=== PATIENT | female | born 1955 | race Caucasian/White ===

== ENCOUNTER 2020-01-26 11:36 | Outpatient (REF) | payer OTHER, SELFPAY ==
[2020-01-26 12:19] LABS: MANUAL DIFF FLAG NO
[2020-01-26 12:23] LABS: Basophils Absolute Auto 0.1 X10*3/uL (0.0-0.2); Eosinophils Absolute Auto 0.1 X10*3/uL (0.0-0.4); Hematocrit 38.3 % (37-47); Hemoglobin 12.4 g/dl (12.0-16.0); Imm Gran Abs Auto 0.02 X10*3/uL (0.00-0.03); Imm Gran Pct Auto 0.3 % (0.0-0.4); Lymphocytes Absolute Auto 1.3 X10*3/uL (1.2-4.9); Lymphocytes Percent Auto 21.6 % (20-40); Mean Corpuscular HGB Conc 32.4 g/dl (31.0-35.0); Mean Corpuscular Hemoglobin 30.3 pg (27.0-33.0); Mean Corpuscular Volume 93.6 fL (80-98); Mean Platelet Volume 11.5 fL (9.4-12.3); Monocytes Absolute Auto 0.6 X10*3/uL (0.1-1.2); Monocytes Percent Auto 9.8 % (2-11); Neutrophils Absolute Auto 3.8 X10*3/uL (2.0-8.3); Neutrophils Percent Auto 65.3 % (45-73); Platelet Count 192 X10*3/uL (160-400); Red Blood Count 4.09 X10*6/uL (4.20-5.50); Red Cell Distribution Width 12.7 % (11.0-16.0); White Blood Count 5.9 X10*3/uL (4.8-10.8)
[2020-01-26 12:42] LABS: Alanine Aminotransferase 20 U/L (0-31); Albumin Level 4.4 g/dL (3.5-5.0); Alkaline Phosphatase 67 U/L (39-117); Anion Gap 10 (12-20); Aspartate Amino Transferase 17 U/L (5-31); Bilirubin Total 0.5 mg/dL (0.0-1.0); Blood Urea Nitrogen 14 mg/dL (9-16); C Reactive Protein 1.03 mg/dL (< or = 0.50); Calcium 10.1 mg/dL (8.4-10.2); Carbon Dioxide 31 mmol/L (22-29); Chloride 104 mmol/L (96-108); Estimated Glomerular Filt Rate > 60; Glucose Random 93 mg/dL (60-115); Potassium 4.7 mmol/l (3.3-5.1); Sodium 140 mmol/L (135-145); Total Protein 7.4 g/dL (6.5-8.0)
== END 2020-01-26 11:37 | disposition home or self-care (01) ==
LOC: HO.10HDL 11:36
PROVIDERS: Visit Provider Internal Medicine
DX: M54.9 Dorsalgia, unspecified (principal); K57.90 Diverticulosis of intestine, part unspecified, without perforation or abscess without bleeding
CPT/HCPCS: 36415; 80053; 85025; 86140

== ENCOUNTER 2020-04-10 10:35 | Emergency (ER) | payer OTHER, SELFPAY ==
[2020-04-10 10:37] VITALS: BP 175/87; PULSE 83; RESP 16; TEMP 36.2; O2SAT 100; BMI 24.0
--- NOTE | 2020-04-10 11:15 | ED.NAVMDI ---
HPI - Nausea/Vomiting/Diarrhea General Chief complaint: Nausea/Vomiting/Diarrhea Stated complaint: vomiting Time Seen by Provider: 04/10/20 11:15 Source: patient Mode of arrival: ambulatory Limitations: no limitations Related Data Allergies Allergy/AdvReac Type Severity Reaction Status Date / Time Penicillins [PENICILLINS] Allergy Severe FACIAL Verified 04/10/20 10:41 SWELLING tetracycline [TETRACYCLINE] Allergy Mild GENERAL Verified 04/10/20 10:41 RASH erythromycin base AdvReac Intermediate GI UP SET Verified 04/10/20 10:41 [ERYTHROMYCIN BASE] PMFSH Past Medical History Medical History (Updated 04/10/20 @ 10:39 by Verona Virk) Back pain Migraines Shingles Social History Social History Advance Directives: Yes Advance Directives on File: Yes Advance Directives Date on File: 01/26/20 Physical Exam Vital Signs: Vital Signs: Last Vital Signs Temp 97.2 F 04/10/20 10:37 Pulse 83 04/10/20 10:37 Resp 16 04/10/20 10:37 BP 175/87 H 04/10/20 10:37 Pulse Ox 100 04/10/20 10:37 Body Mass Index 24.0
[2020-04-10 11:16] VITALS: BP 171/77; PULSE 100; RESP 16; O2SAT 100
--- NOTE | 2020-04-10 11:21 | ED.HA ---
HPI - Headache General Chief Complaint: Nausea/Vomiting/Diarrhea Stated Complaint: vomiting Time Seen by Provider: 04/10/20 11:15 Source: patient Mode of arrival: ambulatory Limitations: no limitations History of Present Illness MD elicited complaint: migraine Pertinent past history: migraines Onset (ago): day(s) (last night) Onset description: gradually Location: right and temporal Severity: similar to previous episodes Quality & Timing: throbbing Exacerbating factors: none Relieving factors: nothing Context: occurred at rest Associated symptoms: nausea and vomiting Treatments prior to arrival: other (excedrin) Related Data Previous Rx's Medication Instructions Recorded ltnokipraw-sbzftlrkehpcq-rovc 1 tab PO Q6H PRN #20 tab 04/10/20 cyclobenzaprine 10 mg PO TID PRN #14 tab 04/10/20 ondansetron 4 mg PO Q8H PRN #20 tab 04/10/20 Allergies Allergy/AdvReac Type Severity Reaction Status Date / Time Penicillins [PENICILLINS] Allergy Severe FACIAL Verified 04/10/20 10:41 SWELLING tetracycline [TETRACYCLINE] Allergy Mild GENERAL Verified 04/10/20 10:41 RASH erythromycin base AdvReac Intermediate GI UP SET Verified 04/10/20 10:41 [ERYTHROMYCIN BASE] Review of Systems Review of Systems: Constitutional : No Fever, No Chills, No Fatigue ENT/Mouth : No sore throat, No Rhinorrhea Eyes: No Eye Pain, No Swelling, No Redness Cardiovascular : No Chest Pain, No SOB, No Dyspnea on Exertion Respiratory : No Cough, No Sputum Gastrointestinal : pos Nausea, pos Vomiting, No Diarrhea, No abdominal Pain Genitourinary : No Dysuria, No Urinary Frequency, No Hematuria, Musculoskeletal : No joint pain, No Myalgias, No Joint Swelling Skin : No Skin Lesions, No rash Neuro : No Weakness, No Numbness, No Dizziness, positive Headache Psych : No Anxiety/Panic, No Depression Heme/Lymph: No Bruising, No Bleeding,No Lymphadenopathy Endocrine : No Polyuria, No Polydipsia All other systems reviewed and are negative [facility] Past Medical History Attestation statement: The following information was validated with the patient. Medical History Back pain Migraines Shingles Social History Social History Alcohol intake: current Alcohol intake frequency: holidays/special occasions only Alcohol type: wine Smoking Status: Never smoker Smoked in Last 30 Days: No Use of substances other than those prescribed or required for medical reasons: No Advance Directives: Yes Advance Directives on File: Yes Advance Directives Date on File: 01/26/20 Physical Exam Vital Signs: Vital Signs: Last Vital Signs Temp 97.2 F 04/10/20 10:37 Pulse 98 04/10/20 13:13 Resp 15 04/10/20 13:13 BP 147/50 H 04/10/20 13:13 Pulse Ox 100 04/10/20 13:13 Body Mass Index 24.0 Appearance: Alert. Oriented X3. No acute distress. Eyes: Pupils equal, round and reactive to light. ENT: Pharynx normal. Neck: Normal inspection. Neck supple. no meningeal signs CVS: Normal heart rate and rhythm. Pulses normal. Respiratory: No respiratory distress. Breath sounds normal. Abdomen: Soft and nontender. Skin: Skin warm and dry. Normal skin color. Normal skin turgor. Extremities: No lower extremity edema. No calf ttp Neuro: Oriented X 3. No motor deficit. No sensory deficit. Course Course Course Narrative: feels better stable for DC MDM - Headache MDM Narrative Medical decision making narrative: 65 yo female no AC therapy gradual onset R sided headache with photophobia and n/v chronic migraines since age 21 at this time will need IV reglan/toradol/magnesium gradual onset, normal neuro exam, afebrile doubt SAH or [employer] infection Discharge Plan Discharge Clinical Impression: Migraine Qualifiers: Migraine type: unspecified Status migrainosus presence: without status migrainosus Intractability: not intractable Qualified Code(s): G43.909 - Migraine, unspecified, not intractable, without status migrainosus Patient Disposition: Home, Self-Care Instructions: Migraine Headache (ED) Additional Instructions: return to ED for any worsening symptoms or concerns Prescriptions: New cyclobenzaprine 10 mg tablet 10 mg PO TID PRN (Reason: muscle spasm) Qty: 14 RF: 0 dvrowirtar-mhcrwieuspyml-dtnh 50-325-40 mg tablet 1 tab PO Q6H PRN (Reason: pain) Qty: 20 RF: 0 ondansetron 4 mg tablet,disintegrating 4 mg PO Q8H PRN (Reason: nausea and vomiting) Qty: 20 RF: 0 Referrals: Jesús Morrissey MD [Primary Care Provider] - 3 days (if not better) Stand Alone Forms: Work/School Release
[2020-04-10] MEDS: 0.9 % Sodium Chloride 1,000 ML 999 ML IVCONT (12:01)
[2020-04-10] MEDS: Ketorolac Tromethamine 30 MG/ML VIAL IVPUSH (12:02)
[2020-04-10] MEDS: Metoclopramide HCl 10 MG/2 ML VIAL IVPUSH (12:02)
[2020-04-10] MEDS: diphenhydrAMINE HCL 50 MG/ML VIAL 25 MG IVPUSH (12:02)
[2020-04-10] MEDS: Magnesium Sulfate/H2O 2 GM/50 ML PIGGYBACK IV (12:03)
[2020-04-10 13:13] VITALS: BP 147/50; PULSE 98; RESP 15; O2SAT 100
== END 2020-04-10 14:46 | disposition home or self-care (01) ==
PROVIDERS: Emergency Provider Emergency Medicine; PCP Internal Medicine
DX: G43.909 Migraine, unspecified, not intractable, without status migrainosus (principal)
CPT/HCPCS: 96365; 96375; 99284; J1200; J1885; J2765; J3475

== ENCOUNTER 2021-04-02 13:53 | Outpatient (REF) | payer MEDICARE, OTHER, SELFPAY ==
[2021-04-02 15:10] LABS: Influenza A PCR NEGATIVE (Negative); Influenza B PCR NEGATIVE (Negative); Resp Syncy Virus RNA Qual PCR NEGATIVE (Negative); SARS COV2 PCR INHOUSE NEGATIVE (Negative)
== END 2021-04-02 13:54 | disposition home or self-care (01) ==
LOC: HO.LNP 13:53
PROVIDERS: Referring Provider Internal Medicine; Visit Provider Internal Medicine
DX: Z20.822 Contact with and (suspected) exposure to COVID-19 (principal); R51.9 Headache, unspecified
CPT/HCPCS: 0241U

== ENCOUNTER 2021-04-07 15:04 | Outpatient (REF) | payer MEDICARE, OTHER, SELFPAY ==
[2021-04-07 15:56] LABS: Influenza A PCR NEGATIVE (Negative); Influenza B PCR NEGATIVE (Negative); Resp Syncy Virus RNA Qual PCR NEGATIVE (Negative); SARS COV2 PCR INHOUSE POSITIVE (Negative)
== END 2021-04-07 15:05 | disposition home or self-care (01) ==
LOC: HO.LNP 15:04
PROVIDERS: Visit Provider Internal Medicine
DX: Z20.822 Contact with and (suspected) exposure to COVID-19 (principal)
CPT/HCPCS: 0241U

== ENCOUNTER 2021-11-10 10:10 | Outpatient (REF) | payer MEDICARE, SELFPAY ==
[2021-11-10 13:29] LABS: MANUAL DIFF FLAG NO
[2021-11-10 13:33] LABS: Basophils Absolute Auto 0.1 X10*3/uL (0.0-0.2); Basophils Percent Auto 1.6 % (0-2); Eosinophils Absolute Auto 0.1 X10*3/uL (0.0-0.4); Eosinophils Percent Auto 2.9 % (0-4); Hematocrit 38.3 % (37.0-47.0); Hemoglobin 12.3 g/dl (12.0-16.0); Imm Gran Abs Auto 0.03 X10*3/uL (0.00-0.03); Imm Gran Pct Auto 0.7 % (0.0-0.4); Lymphocytes Absolute Auto 1.7 X10*3/uL (1.2-4.9); Lymphocytes Percent Auto 39.5 % (20-40); Mean Corpuscular HGB Conc 32.1 g/dl (31.0-35.0); Mean Corpuscular Hemoglobin 29.9 pg (27.0-33.0); Mean Platelet Volume 11.1 fL (9.4-12.3); Monocytes Absolute Auto 0.6 X10*3/uL (0.1-1.2); Monocytes Percent Auto 13.4 % (2-11); Neutrophils Absolute Auto 1.9 x10*3/uL (2.0-8.3); Neutrophils Percent Auto 41.9 % (45-73); Platelet Count 248 X10*3/uL (160-400); Red Blood Count 4.12 X10*6/uL (4.20-5.50); Red Cell Distribution Width 13.2 % (11.0-16.0); White Blood Count 4.4 X10*3/uL (4.8-10.8)
[2021-11-10 13:48] LABS: Alanine Aminotransferase 15 U/L (0-31); Albumin Level 4.2 g/dL (3.5-5.0); Alkaline Phosphatase 60 U/L (39-117); Anion Gap 9 (12-20); Aspartate Amino Transferase 18 U/L (5-31); Bilirubin Total 0.4 mg/dL (0.0-1.0); Blood Urea Nitrogen 15 mg/dL (9-16); Calcium 9.4 mg/dL (8.4-10.2); Carbon Dioxide 29 mmol/L (22-29); Chloride 106 mmol/L (96-108); Cholesterol 209 mg/dL; Estimated Glomerular Filt Rate > 60; Glucose Fasting 85 mg/dL (60-99); HDL Cholesterol 55 mg/dL; LDL Cholesterol Calculated 117 mg/dl; Potassium 4.4 mmol/L (3.3-5.1); Sodium 140 mmol/L (135-145); Total Protein 7.1 g/dL (6.5-8.0); Triglycerides 185 mg/dL
== END 2021-11-10 10:11 | disposition home or self-care (01) ==
LOC: HO.10HDL 10:10
PROVIDERS: Visit Provider Internal Medicine
DX: E55.9 Vitamin D deficiency, unspecified (principal); E78.00 Pure hypercholesterolemia, unspecified; G43.909 Migraine, unspecified, not intractable, without status migrainosus
CPT/HCPCS: 36415; 80053; 80061; 82306; 85025

== ENCOUNTER 2021-12-01 06:45 | Day surgery (SDC) | payer MEDICARE, SELFPAY ==
[2021-11-24 14:11] VITALS: BMI 24.0
--- NOTE | 2021-11-28 13:01 | P.CONAN_ITS ---
Documented by User: Antonella Penny NP 11/28/21 13:02 HPI - Anesthesia Eval Consult details Narrative: 66yo F for Right Cataract Extraction IOL Insertion PCP cleared No previous cataract on record PMFSH Past Medical History Medical History Abdominal bloating Back pain History of COVID-19 Migraines Shingles Surgical History Surgical History (Updated 11/24/21 @ 14:11 by Jenni Yang RN) History of hand surgery History of shoulder surgery History of surgery Hx of colonoscopy Social History Social History Are you a primary client care coordinator to a significant other at home: No Do you presently have visiting nurse or other home services: No Alcohol intake: current Alcohol intake frequency: holidays/special occasions only Alcohol type: wine Patient Tobacco Use Status: Former Tobacco user Quit Date: 1984 Tobacco use type: Cigarette Use of substances other than those prescribed or required for medical reasons: No Have you been hit, kicked, punched, or otherwise hurt by someone within the past year? If so, by whom?: No Are you DNR?: No Advance Directives: Yes Advance Directives Information Provided: Yes Advance Directives on File: Yes Advance Directives Date on File: 01/26/20 Recently lost weight without trying: No Eating poorly because of decreased appetite: No Nutrition Risks: No Nutritional Risk Patient : No Meds Allergies Allergy/AdvReac Type Severity Reaction Status Date / Time Penicillins [PENICILLINS] Allergy Severe FACIAL Verified 11/24/21 11:07 SWELLING tetracycline [TETRACYCLINE] Allergy Mild GENERAL Verified 11/24/21 11:07 RASH povidone-iodine Allergy Rash Verified 11/24/21 14:06 [From Betadine] erythromycin base AdvReac Intermediate GI UP SET Verified 11/24/21 11:07 [ERYTHROMYCIN BASE] Home Medications Medication Instructions Recorded Confirmed Last Taken Type hjcggncqnd-rqvasluqxlcgt-fxwpvnjz 1 tab PO Q6H PRN Migraine Headache 11/24/21 11/24/21 Unknown History 50 mg-325 mg-40 mg tablet cholecalciferol (vitamin D3) 25 25 mcg PO DAILY 11/24/21 11/24/21 Unknown History mcg (1,000 unit) tablet (Vitamin D3) diazepam 5 mg tablet 0.5 tab PO BEDTIME PRN Sleep 11/24/21 11/24/21 Unknown History multivitamin with minerals 1 tab PO DAILY 11/24/21 11/24/21 Unknown History (Hair,Skin and Nails tablet) omeprazole 20 mg capsule,delayed 1 cap PO DAILY 11/24/21 11/24/21 12/01/21 History release oxycodone-acetaminophen 5 mg-325 1 tab PO Q6H PRN Pain 11/24/21 11/24/21 Unknown History mg tablet propranolol 80 mg capsule,24 1 cap PO BID 11/24/21 11/24/21 12/01/21 History hr,extended release Exam Exam Date and Time: November 28, 2021 1301 Height,Weight and Vital Signs: Height 5 ft 8 in Weight 71.668 kg Assessment and Plan Assessment Anesthesia Assessment: Chart Reviewed Documented by User: Yane Mcgrath MD 12/01/21 09:19 [facility] Past Medical History Medical History Abdominal bloating Back pain History of COVID-19 Migraines Shingles Functional capacity: independent ambulation Patient : No Family History Family history of problems with anesthesia: No Surgical History Surgical History (Updated 11/24/21 @ 14:11 by Jenni Yang RN) History of hand surgery History of shoulder surgery History of surgery Hx of colonoscopy History of Problems with Anesthesia: No Social History Social History Are you a primary client care coordinator to a significant other at home: No Do you presently have visiting nurse or other home services: No Alcohol intake: current Alcohol intake frequency: holidays/special occasions only Alcohol type: wine Patient Tobacco Use Status: Former Tobacco user Quit Date: 1984 Tobacco use type: Cigarette Use of substances other than those prescribed or required for medical reasons: No Have you been hit, kicked, punched, or otherwise hurt by someone within the past year? If so, by whom?: No Are you DNR?: No Advance Directives: Yes Advance Directives Information Provided: Yes Advance Directives on File: Yes Advance Directives Date on File: 01/26/20 Recently lost weight without trying: No Eating poorly because of decreased appetite: No Nutrition Risks: No Nutritional Risk Patient : No Meds Allergies Allergy/AdvReac Type Severity Reaction Status Date / Time Penicillins [PENICILLINS] Allergy Severe FACIAL Verified 11/24/21 11:07 SWELLING tetracycline [TETRACYCLINE] Allergy Mild GENERAL Verified 11/24/21 11:07 RASH povidone-iodine Allergy Rash Verified 11/24/21 14:06 [From Betadine] erythromycin base AdvReac Intermediate GI UP SET Verified 11/24/21 11:07 [ERYTHROMYCIN BASE] Home Medications Medication Instructions Recorded Confirmed Last Taken Type kfxkgwrswn-mnqazwgiaxdnm-sbkcihbg 1 tab PO Q6H PRN Migraine Headache 11/24/21 11/24/21 Unknown History 50 mg-325 mg-40 mg tablet cholecalciferol (vitamin D3) 25 25 mcg PO DAILY 11/24/21 11/24/21 Unknown History mcg (1,000 unit) tablet (Vitamin D3) diazepam 5 mg tablet 0.5 tab PO BEDTIME PRN Sleep 11/24/21 11/24/21 Unknown History multivitamin with minerals 1 tab PO DAILY 11/24/21 11/24/21 Unknown History (Hair,Skin and Nails tablet) omeprazole 20 mg capsule,delayed 1 cap PO DAILY 11/24/21 11/24/21 12/01/21 History release oxycodone-acetaminophen 5 mg-325 1 tab PO Q6H PRN Pain 11/24/21 11/24/21 Unknown History mg tablet propranolol 80 mg capsule,24 1 cap PO BID 11/24/21 11/24/21 12/01/21 History hr,extended release Exam Airway Mallampati Class: II TM Dist: >3cm Neck ROM: Full Heart: RRR Lungs: CTA Assessment and Plan Final Anesthetic Review Family History of Problems with Anesthesia: No History of Problems with Anesthesia: No NPO: Yes ASA Class: II Final Preanesthetic Review: No Changes in Pt Med Stat, Meds/Allgs Chart Reviewed, Consent Obtained/Reviewed and Anes Risks/Benef Reviewed Patient Risk: Low Procedure Risk: Low Anesthetic Plan Anesthetic Plan: MAC: Disposition: Standard PACU
[2021-12-01 07:20] VITALS: BP 170/73; PULSE 68; RESP 16; TEMP 36.1; O2SAT 99
[2021-12-01] MEDS: Tetracaine HCl/PF 0.5% Oph Sol 4 ML DROPS 1 DROP EYE-RIGHT (07:25)
[2021-12-01] MEDS: Cyclopentolate 1 % Ophth Sol 2 ML DRPBTL 1 DROP EYE-RIGHT ×3 (07:27→07:37)
[2021-12-01] MEDS: Lactated Ringers 500 ML 50 ML IV (07:27)
[2021-12-01] MEDS: Tropicamide 1 % Ophth Sol 3 ML BTL 1 DROP EYE-RIGHT ×3 (07:28→07:38)
[2021-12-01] MEDS: Phenylephrine HCL 2.5% Oph SoL 2 ML BOTTLE 1 DROP EYE-RIGHT ×3 (07:30→07:40)
[2021-12-01 09:34] VITALS: BP 130/70; PULSE 62; RESP 16; TEMP 36.1; O2SAT 98
--- NOTE | 2021-12-01 10:46 | HO.POSTANES ---
Post Anesthesia Evaluation Post Anesthesia Evaluation Vital Signs: Vital Signs Temp Pulse Resp BP Pulse Ox O2 Del Method 12/01/21 09:34 97 F 62 16 130/70 98 Room Air 12/01/21 07:20 97.0 F 68 16 170/73 H 99 Room Air Anesthesia: Monitored Mental Status: Awake Nausea/Vomiting: None Hydration: Adequate Anesthesia-Related Issues: No Anes. Related Issues
== END 2021-12-01 09:50 | disposition home or self-care (01) ==
LOC: HO.SSS 06:46
PROVIDERS: PCP Internal Medicine; Visit Provider Ophthalmology
PROC: (CPT 66985; principal; 2021-12-01 09:40)
DX: H25.11 Age-related nuclear cataract, right eye (principal); H54.7 Unspecified visual loss; G43.909 Migraine, unspecified, not intractable, without status migrainosus; Z79.899 Other long term (current) drug therapy; Z88.0 Allergy status to penicillin; Z88.1 Allergy status to other antibiotic agents; Z86.19 Personal history of other infectious and parasitic diseases; Z86.16 Personal history of COVID-19; Z87.891 Personal history of nicotine dependence
CPT/HCPCS: 66984; J2250; J3010; J3300; V2632

== ENCOUNTER 2022-01-05 08:03 | Day surgery (SDC) | payer MEDICARE, SELFPAY ==
[2021-11-24 14:17] VITALS: BMI 24.0
--- NOTE | 2021-12-11 12:33 | MHC.SHP ---
Pre-Procedural Eval Section A Date of Service: 12/11/21 The patient is an INPATIENT: No Changes since office visit: No Cold of Flu in the past 2 weeks, No New Medical Problems, No Changes in Medication and No Patient answered all questions The History & Physical has been completed within 30 days and I have reviewed it.: Yes Section B Chief Complaint: Age-related nuclear cataract, left eye Allergies: Allergies Allergy/AdvReac Type Severity Reaction Status Date / Time Penicillins [PENICILLINS] Allergy Severe FACIAL Verified 11/24/21 11:07 SWELLING tetracycline [TETRACYCLINE] Allergy Mild GENERAL Verified 11/24/21 11:07 RASH povidone-iodine Allergy Rash Verified 11/24/21 14:06 [From Betadine] erythromycin base AdvReac Intermediate GI UP SET Verified 11/24/21 11:07 [ERYTHROMYCIN BASE] Plan Diagnosis/Plan: Unchanged I have reviewed the history and physical and performed a pertinent physical examination on my patient. No changes have occurred unless specified.
--- NOTE | 2021-12-31 15:59 | HP_ITS ---
DATE OF SERVICE: 01/05/2022 HISTORY OF PRESENT ILLNESS: The patient is a 66-year-old female who is seen in the office today for preop evaluation for rescheduled cataract surgery next week with Dr. Franco. The patient feels well. There have been no significant changes from her last evaluation. PRESENT MEDICATIONS: Propranolol LA 80 twice a day, vitamin D, and p.r.n. Prilosec 20 mg a day. PAST MEDICAL HISTORY: Significant for hypertension, gastroesophageal reflux disease, low vitamin D, migraines, elevated cholesterol, diverticulosis, history of tobacco use, history of back pain. ALLERGIES: SHE LISTS ALLERGIES TO TETRACYCLINE AND PENICILLIN. FAMILY HISTORY: Mother at 89. Father at 92. One brother of leukemia. Another brother is in good health. SOCIAL HISTORY: She is retired, , has 1 stepson. REVIEW OF SYSTEMS: Occasional headaches. Otherwise noncontributory. PHYSICAL EXAMINATION: GENERAL: She is awake and alert, in no distress. VITAL SIGNS: Temperature 98.2, pulse 60, respirations 12, pressure 132/88. HEENT: Clear. NECK: Supple. No lymph nodes, bruits, or masses. HEART: Sounds S1 and S2. Regular rate. LUNGS: Clear. ABDOMEN: Soft, nontender. Positive bowel sounds. No HSM. EXTREMITIES: No clubbing, cyanosis, or edema. Peripheral pulses are intact. Cranial nerves are intact. ASSESSMENT AND PLAN: She is medically stable for the proposed procedure. I will be available if there are any medical issues. MD LUIS ANTONIO Rodarte/YOAN / [phone]
--- NOTE | 2022-01-01 13:37 | MHC.SHP ---
Pre-Procedural Eval Section A Date of Service: 01/01/22 The patient is an INPATIENT: No Changes since office visit: No Cold of Flu in the past 2 weeks, No New Medical Problems, No Changes in Medication and No Patient answered all questions The History & Physical has been completed within 30 days and I have reviewed it.: Yes Section B Chief Complaint: Age-related nuclear cataract, left eye Allergies: Allergies Allergy/AdvReac Type Severity Reaction Status Date / Time Penicillins [PENICILLINS] Allergy Severe FACIAL Verified 11/24/21 11:07 SWELLING tetracycline [TETRACYCLINE] Allergy Mild GENERAL Verified 11/24/21 11:07 RASH povidone-iodine Allergy Rash Verified 11/24/21 14:06 [From Betadine] erythromycin base AdvReac Intermediate GI UP SET Verified 11/24/21 11:07 [ERYTHROMYCIN BASE] Plan Diagnosis/Plan: Unchanged I have reviewed the history and physical and performed a pertinent physical examination on my patient. No changes have occurred unless specified.
--- NOTE | 2022-01-02 09:40 | P.CONAN_ITS ---
Documented by User: Antonella Penny NP 01/02/22 09:42 HPI - Anesthesia Eval Consult details Narrative: 66yo F for Left Cataract Extraction IOL Insertion PCP cleared Right eye 12/01/21 with TIVA: Midaz 2 PMFSH Past Medical History Medical History Abdominal bloating Back pain History of COVID-19 Migraines Shingles Family History Family history of problems with anesthesia: No Surgical History Surgical History History of hand surgery History of shoulder surgery History of surgery Hx of cataract extraction Hx of colonoscopy History of Problems with Anesthesia: No Social History Social History Are you a primary healthcare social worker to a significant other at home: No Do you presently have visiting nurse or other home services: No Alcohol intake: current Alcohol intake frequency: holidays/special occasions only Alcohol type: wine Patient Tobacco Use Status: Former Tobacco user Quit Date: 1984 Tobacco use type: Cigarette Use of substances other than those prescribed or required for medical reasons: No Have you been hit, kicked, punched, or otherwise hurt by someone within the past year? If so, by whom?: No Are you DNR?: No Advance Directives: Yes Advance Directives Information Provided: No Advance Directives on File: Yes Advance Directives Date on File: 01/26/20 Recently lost weight without trying: No Eating poorly because of decreased appetite: No Nutrition Risks: No Nutritional Risk Patient : No Meds Allergies Allergy/AdvReac Type Severity Reaction Status Date / Time Penicillins [PENICILLINS] Allergy Severe FACIAL Verified 11/24/21 11:07 SWELLING tetracycline [TETRACYCLINE] Allergy Mild GENERAL Verified 11/24/21 11:07 RASH povidone-iodine Allergy Rash Verified 11/24/21 14:06 [From Betadine] erythromycin base AdvReac Intermediate GI UP SET Verified 11/24/21 11:07 [ERYTHROMYCIN BASE] Home Medications Medication Instructions Recorded Confirmed Last Taken Type qndtxlgcau-nhmyznmpauxww-scwpneac 1 tab PO Q6H PRN Migraine Headache 11/24/21 11/24/21 Unknown History 50 mg-325 mg-40 mg tablet cholecalciferol (vitamin D3) 25 25 mcg PO DAILY 11/24/21 11/24/21 Unknown History mcg (1,000 unit) tablet (Vitamin D3) diazepam 5 mg tablet 0.5 tab PO BEDTIME PRN Sleep 11/24/21 11/24/21 Unknown History multivitamin with minerals 1 tab PO DAILY 11/24/21 11/24/21 Unknown History (Hair,Skin and Nails tablet) omeprazole 20 mg capsule,delayed 1 cap PO DAILY 11/24/21 11/24/21 12/01/21 History release oxycodone-acetaminophen 5 mg-325 1 tab PO Q6H PRN Pain 11/24/21 11/24/21 Unknown History mg tablet propranolol 80 mg capsule,24 1 cap PO BID 11/24/21 11/24/21 12/01/21 History hr,extended release Exam Exam Date and Time: January 02, 2022 0940 Height,Weight and Vital Signs: Height 5 ft 8 in Weight 71.668 kg Assessment and Plan Assessment Anesthesia Assessment: Chart Reviewed Final Anesthetic Review Family History of Problems with Anesthesia: No History of Problems with Anesthesia: No Documented by User: Milo Webb MD 01/05/22 10:03 [facility] Past Medical History Medical History Abdominal bloating Back pain History of COVID-19 Migraines Shingles Surgical History Surgical History History of hand surgery History of shoulder surgery History of surgery Hx of cataract extraction Hx of colonoscopy Social History Social History Are you a primary healthcare social worker to a significant other at home: No Do you presently have visiting nurse or other home services: No Alcohol intake: current Alcohol intake frequency: holidays/special occasions only Alcohol type: wine Patient Tobacco Use Status: Former Tobacco user Quit Date: 1984 Tobacco use type: Cigarette Use of substances other than those prescribed or required for medical reasons: No Have you been hit, kicked, punched, or otherwise hurt by someone within the past year? If so, by whom?: No Are you DNR?: No Advance Directives: Yes Advance Directives Information Provided: No Advance Directives on File: Yes Advance Directives Date on File: 01/26/20 Recently lost weight without trying: No Eating poorly because of decreased appetite: No Nutrition Risks: No Nutritional Risk Patient : No Meds Allergies Allergy/AdvReac Type Severity Reaction Status Date / Time Penicillins [PENICILLINS] Allergy Severe FACIAL Verified 11/24/21 11:07 SWELLING tetracycline [TETRACYCLINE] Allergy Mild GENERAL Verified 11/24/21 11:07 RASH povidone-iodine Allergy Rash Verified 11/24/21 14:06 [From Betadine] erythromycin base AdvReac Intermediate GI UP SET Verified 11/24/21 11:07 [ERYTHROMYCIN BASE] Home Medications Medication Instructions Recorded Confirmed Last Taken Type cyfatnmvkk-oirctjtehmlxv-xecugcsm 1 tab PO Q6H PRN Migraine Headache 11/24/21 11/24/21 Unknown History 50 mg-325 mg-40 mg tablet cholecalciferol (vitamin D3) 25 25 mcg PO DAILY 11/24/21 11/24/21 Unknown History mcg (1,000 unit) tablet (Vitamin D3) diazepam 5 mg tablet 0.5 tab PO BEDTIME PRN Sleep 11/24/21 11/24/21 Unknown History multivitamin with minerals 1 tab PO DAILY 11/24/21 11/24/21 Unknown History (Hair,Skin and Nails tablet) omeprazole 20 mg capsule,delayed 1 cap PO DAILY 11/24/21 11/24/21 12/01/21 History release oxycodone-acetaminophen 5 mg-325 1 tab PO Q6H PRN Pain 11/24/21 11/24/21 Unknown History mg tablet propranolol 80 mg capsule,24 1 cap PO BID 11/24/21 11/24/21 12/01/21 History hr,extended release Exam Airway Mallampati Class: II TM Dist: >3cm Neck ROM: Full Loose/Missing/Broken Teeth: No Heart: rrr+[id number] Lungs: cta b/l Assessment and Plan Assessment Anesthesia Assessment: Anesthesia Plan Discussed Final Anesthetic Review NPO: Yes ASA Class: III Final Preanesthetic Review: No Changes in Pt Med Stat, Meds/Allgs Chart Reviewed, Consent Obtained/Reviewed and Anes Risks/Benef Reviewed Patient Risk: Intermediate Procedure Risk: Low Assessment/Block/Sedation in SS: Assess/Block/Sedation-SS Anesthetic Plan Anesthetic Plan: MAC: and Agree w/ Assess. and Plan Disposition: Standard PACU
[2022-01-05 09:39] VITALS: BP 155/71; PULSE 60; RESP 16; TEMP 36.5; O2SAT 100
[2022-01-05] MEDS: Tetracaine HCl/PF 0.5% Oph Sol 4 ML DROPS 1 DROP EYE-LEFT (09:45)
[2022-01-05] MEDS: Lactated Ringers 500 ML 50 ML IV (09:48)
[2022-01-05] MEDS: Cyclopentolate 1 % Ophth Sol 2 ML DRPBTL 1 DROP EYE-LEFT ×3 (09:48→09:56)
[2022-01-05] MEDS: Tropicamide 1 % Ophth Sol 3 ML BTL 1 DROP EYE-LEFT ×3 (09:49→09:57)
[2022-01-05] MEDS: Phenylephrine HCL 2.5% Oph SoL 2 ML BOTTLE 1 DROP EYE-LEFT ×3 (09:51→10:00)
--- NOTE | 2022-01-05 10:36 | HO.PNOPHT ---
Ophthalmology Procedure Procedure Date of Service: 01/05/22 Ophthalmology Viscoelastic: Healon Duet Dual Pack Pro Ophthalmology Lenses: TECNIS [id number] (18.5) Procedure Notes: PREOPERATIVE DIAGNOSIS: Decreased visual acuity left eye secondary to cataract POSTOPERATIVE DIAGNOSIS: Same PROCEDURE: Left cataract extraction with intraocular lens insertion SURGEON: Justin Franco M.D. ANESTHESIA: Topical/MAC ESTIMATED BLOOD LOSS: None COMPLICATIONS: None After obtaining informed consent, the patient was brought to the operation room suite and placed in the supine position. After adequate sedation per anesthesia, topical drops of Tetracaine were given to the left eye. The eye was then prepped and draped in the usual sterile fashion. The operating room microscope was then positioned over the operative eye and a lid speculum placed. A paracentesis was created. Viscoelastic was then instilled into the anterior chamber. A three plane incision was then created temporally, utilizing a 2.85 mm keratome. Capsulotomy forceps were then utilized to create a circular tear capsulotomy. Hydrodissection and hydrodelineation were carried out until adequate mobilization of the nucleus occurred. Phacoemulsification was then utilized to remove the dense central nucleus followed by removal of the cortical material utilizing the automated aspiration irrigation unit. Viscoat elastic was instilled into the posterior capsular bag followed by placement of a posterior chamber intraocular lens without difficulty. The residual Viscoat elastic was then removed utilizing the automated IA machine. The wound was check and found to be watertight. The patient tolerated the procedure well and the lid speculum was removed. Intracameral injection of Vigamox 0.1 mL followed by a subtenon injection of Kenalog-40 0.2 mL were administered. The patient will be seen in the a.m.
[2022-01-05 11:03] VITALS: BP 151/68; PULSE 53; RESP 16; TEMP 36.4; O2SAT 100
== END 2022-01-05 11:22 | disposition home or self-care (01) ==
PROVIDERS: PCP Internal Medicine; Visit Provider Ophthalmology
PROC: (CPT 66985; principal; 2022-01-05 10:20)
DX: H25.12 Age-related nuclear cataract, left eye (principal); H54.7 Unspecified visual loss; G43.909 Migraine, unspecified, not intractable, without status migrainosus; M51.36 Other intervertebral disc degeneration, lumbar region; I10 Essential (primary) hypertension; K21.9 Gastro-esophageal reflux disease without esophagitis; E55.9 Vitamin D deficiency, unspecified; E78.00 Pure hypercholesterolemia, unspecified; Z79.899 Other long term (current) drug therapy; Z88.0 Allergy status to penicillin; Z88.1 Allergy status to other antibiotic agents; Z86.16 Personal history of COVID-19; Z86.19 Personal history of other infectious and parasitic diseases; Z87.891 Personal history of nicotine dependence
CPT/HCPCS: 66984; J2250; J3010; J3300; V2632

== ENCOUNTER 2022-10-03 08:00 | Outpatient (REF) | payer MEDICARE, SELFPAY ==
[2022-10-03 08:31] LABS: MANUAL DIFF FLAG NO
[2022-10-03 09:07] LABS: Basophils Absolute Auto 0.1 X10*3/uL (0.0-0.2); Basophils Percent Auto 1.7 % (0-2); Eosinophils Absolute Auto 0.2 X10*3/uL (0.0-0.4); Eosinophils Percent Auto 3.6 % (0-4); Hematocrit 37.3 % (37.0-47.0); Hemoglobin 12.1 g/dl (12.0-16.0); Imm Gran Abs Auto 0.02 X10*3/uL (0.00-0.03); Imm Gran Pct Auto 0.4 % (0.0-0.4); Lymphocytes Absolute Auto 2.2 X10*3/uL (1.2-4.9); Lymphocytes Percent Auto 41.3 % (20-40); Mean Corpuscular HGB Conc 32.4 g/dl (31.0-35.0); Mean Corpuscular Volume 92.6 fL (80.0-98.0); Mean Platelet Volume 11.3 fL (9.4-12.3); Monocytes Absolute Auto 0.6 X10*3/uL (0.1-1.2); Monocytes Percent Auto 10.4 % (2-11); Neutrophils Absolute Auto 2.3 x10*3/uL (2.0-8.3); Neutrophils Percent Auto 42.6 % (45-73); Platelet Count 199 X10*3/uL (160-400); Red Blood Count 4.03 X10*6/uL (4.20-5.50); Red Cell Distribution Width 13.1 % (11.0-16.0); White Blood Count 5.3 X10*3/uL (4.8-10.8)
[2022-10-03 09:47] LABS: Alanine Aminotransferase 13 U/L (0-31); Albumin Level 4.2 g/dL (3.5-5.0); Alkaline Phosphatase 59 U/L (39-117); Anion Gap 10 (12-20); Aspartate Amino Transferase 17 U/L (5-31); Bilirubin Total 0.4 mg/dL (0.0-1.0); Blood Urea Nitrogen 13 mg/dL (9-16); Calcium 9.9 mg/dL (8.4-10.2); Carbon Dioxide 29 mmol/L (22-29); Chloride 106 mmol/L (96-108); Cholesterol 207 mg/dL; Estimated Glomerular Filt Rate > 60; Glucose Random 88 mg/dL (60-115); HDL Cholesterol 59 mg/dL; LDL Cholesterol Calculated 110 mg/dl; Sodium 141 mmol/L (135-145); Total Protein 7.3 g/dL (6.5-8.0); Triglycerides 192 mg/dL
[2022-10-04 13:06] LABS: Vitamin D 25-OH Total 37.8 ng/mL (>30)
== END 2022-10-03 08:01 | disposition home or self-care (01) ==
LOC: HO.LAB 08:00
PROVIDERS: PCP Internal Medicine; Visit Provider Internal Medicine
DX: Z00.00 Encounter for general adult medical examination without abnormal findings (principal)
CPT/HCPCS: 36415; 80053; 80061; 82306; 85025

== ENCOUNTER 2023-01-29 14:35 | Outpatient (REF) | payer MEDICARE, SELFPAY ==
[2023-01-29 15:59] LABS: Influenza A PCR NEGATIVE (Negative); Influenza B PCR NEGATIVE (Negative); Resp Syncy Virus RNA Qual PCR NEGATIVE (Negative); SARS COV2 PCR INHOUSE POSITIVE (Negative)
== END 2023-01-29 14:36 | disposition home or self-care (01) ==
LOC: HO.LNP 14:35
PROVIDERS: Visit Provider Internal Medicine
DX: R50.9 Fever, unspecified (principal); R05.9 Cough, unspecified; R52 Pain, unspecified; Z11.52 Encounter for screening for COVID-19
CPT/HCPCS: 0241U

== ENCOUNTER 2023-04-14 10:19 | Outpatient (REF) | payer MEDICARE, SELFPAY | END 2023-04-14 10:20 | disposition home or self-care (01) | LOC: HO.LNP 10:19 | PROVIDERS: Visit Provider Internal Medicine | DX: J04.0 Acute laryngitis (principal); J02.9 Acute pharyngitis, unspecified | CPT/HCPCS: 87070 ==

== ENCOUNTER 2023-05-17 11:05 | Outpatient (REF) | payer MEDICARE, SELFPAY ==
[2023-05-17 13:14] LABS: MANUAL DIFF FLAG NO
[2023-05-17 13:20] LABS: Basophils Absolute Auto 0.1 X10*3/uL (0.0-0.2); Basophils Percent Auto 1.6 % (0-2); Eosinophils Absolute Auto 0.3 X10*3/uL (0.0-0.4); Eosinophils Percent Auto 5.1 % (0-4); Hematocrit 37.1 % (37.0-47.0); Imm Gran Abs Auto 0.02 X10*3/uL (0.00-0.03); Imm Gran Pct Auto 0.4 % (0.0-0.4); Lymphocytes Absolute Auto 2.4 X10*3/uL (1.2-4.9); Lymphocytes Percent Auto 42.9 % (20-40); Mean Corpuscular HGB Conc 32.3 g/dl (31.0-35.0); Mean Corpuscular Hemoglobin 30.4 pg (27.0-33.0); Mean Corpuscular Volume 93.9 fL (80.0-98.0); Mean Platelet Volume 11.4 fL (9.4-12.3); Monocytes Absolute Auto 0.6 X10*3/uL (0.1-1.2); Monocytes Percent Auto 11.6 % (2-11); Neutrophils Absolute Auto 2.1 x10*3/uL (2.0-8.3); Neutrophils Percent Auto 38.4 % (45-73); Platelet Count 216 X10*3/uL (160-400); Red Blood Count 3.95 X10*6/uL (4.20-5.50); Red Cell Distribution Width 12.8 % (11.0-16.0); White Blood Count 5.5 X10*3/uL (4.8-10.8)
[2023-05-17 13:59] LABS: Anion Gap 12 (12-20); Blood Urea Nitrogen 18 mg/dL (9-16); Calcium 9.9 mg/dL (8.4-10.2); Carbon Dioxide 28 mmol/L (22-29); Chloride 105 mmol/L (96-108); Estimated Glomerular Filt Rate > 60; Glucose Random 82 mg/dL (60-115); Potassium 4.2 mmol/L (3.3-5.1); Sodium 141 mmol/L (135-145)
== END 2023-05-17 11:06 | disposition home or self-care (01) ==
LOC: HO.10HDL 11:05
PROVIDERS: Visit Provider Internal Medicine
DX: I10 Essential (primary) hypertension (principal); K21.9 Gastro-esophageal reflux disease without esophagitis
CPT/HCPCS: 36415; 80048; 85025

== ENCOUNTER 2023-09-23 11:49 | Outpatient (REF) | payer MEDICARE, SELFPAY ==
[2023-09-23 13:12] LABS: Influenza A PCR NEGATIVE (Negative); Influenza B PCR NEGATIVE (Negative); Resp Syncy Virus RNA Qual PCR NEGATIVE (Negative); SARS COV2 PCR INHOUSE NEGATIVE (Negative)
== END 2023-09-23 11:50 | disposition home or self-care (01) ==
LOC: HO.LNP 11:49
PROVIDERS: Visit Provider Internal Medicine
DX: R05.9 Cough, unspecified (principal)
CPT/HCPCS: 0241U

== ENCOUNTER 2023-11-04 10:40 | Outpatient (REF) | payer MEDICARE, SELFPAY ==
[2023-11-04 13:16] LABS: MANUAL DIFF FLAG NO
[2023-11-04 13:19] LABS: Basophils Absolute Auto 0.1 X10*3/uL (0.0-0.2); Basophils Percent Auto 1.5 % (0-2); Eosinophils Absolute Auto 0.2 X10*3/uL (0.0-0.4); Eosinophils Percent Auto 3.5 % (0-4); Hemoglobin 13.4 g/dl (12.0-16.0); Imm Gran Abs Auto 0.02 X10*3/uL (0.00-0.03); Imm Gran Pct Auto 0.3 % (0.0-0.4); Lymphocytes Absolute Auto 2.7 X10*3/uL (1.2-4.9); Lymphocytes Percent Auto 40.4 % (20-40); Mean Corpuscular HGB Conc 33.5 g/dl (31.0-35.0); Mean Corpuscular Hemoglobin 30.9 pg (27.0-33.0); Mean Corpuscular Volume 92.2 fL (80.0-98.0); Mean Platelet Volume 10.8 fL (9.4-12.3); Monocytes Absolute Auto 0.7 X10*3/uL (0.1-1.2); Monocytes Percent Auto 10.2 % (2-11); Neutrophils Absolute Auto 2.9 x10*3/uL (2.0-8.3); Neutrophils Percent Auto 44.1 % (45-73); Platelet Count 216 X10*3/uL (160-400); Red Blood Count 4.34 X10*6/uL (4.20-5.50); Red Cell Distribution Width 12.8 % (11.0-16.0); White Blood Count 6.7 X10*3/uL (4.8-10.8)
[2023-11-04 13:58] LABS: Alanine Aminotransferase 11 U/L (0-31); Albumin Level 4.3 g/dL (3.5-5.0); Alkaline Phosphatase 65 U/L (39-117); Anion Gap 13 (12-20); Aspartate Amino Transferase 16 U/L (5-31); Bilirubin Total 0.4 mg/dL (0.0-1.0); Blood Urea Nitrogen 15 mg/dL (9-16); Carbon Dioxide 28 mmol/L (22-29); Chloride 104 mmol/L (96-108); Cholesterol 194 mg/dL (<200); Estimated Glomerular Filt Rate 55; Glucose Fasting 83 mg/dL (60-99); HDL Cholesterol 56 mg/dL (>40); LDL Cholesterol Calculated 100 mg/dL (<100); Potassium 4.2 mmol/L (3.3-5.1); Sodium 141 mmol/L (135-145); Total Protein 7.6 g/dL (6.5-8.0); Triglycerides 193 mg/dL (<150)
[2023-11-04 14:00] LABS: Vitamin D 25-OH Total 45.3 ng/mL (>30)
== END 2023-11-04 10:41 | disposition home or self-care (01) ==
LOC: HO.10HDL 10:40
PROVIDERS: Visit Provider Internal Medicine
DX: I10 Essential (primary) hypertension (principal); E55.9 Vitamin D deficiency, unspecified; K21.9 Gastro-esophageal reflux disease without esophagitis
CPT/HCPCS: 36415; 80053; 80061; 82306; 85025

== ENCOUNTER 2024-06-30 14:30 | Outpatient (AMB) | payer MEDICARE, SELFPAY ==
--- NOTE | 2024-06-30 15:19 | A.OFFPC_ITS ---
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 Accompanied by: Spouse Allergies Penicillins [PENICILLINS] Allergy (Severe, Verified 06/30/24 15:20) FACIAL SWELLING tetracycline [TETRACYCLINE] Allergy (Mild, Verified 06/30/24 15:20) GENERAL RASH povidone-iodine [From Betadine] Allergy (Verified 06/30/24 15:20) Rash erythromycin base [ERYTHROMYCIN BASE] Adverse Reaction (Intermediate, Verified 06/30/24 15:20) GI UP SET Medication List - Last Reconciled 06/30/24 by Lubna Charles MD cholecalciferol (vitamin D3) (Vitamin D3) 25 mcg PO DAILY diazepam 0.5 tabs PO BEDTIME PRN multivitamin with minerals (Hair,Skin and Nails tablet) 1 tab PO DAILY omeprazole 1 cap PO DAILY oxycodone-acetaminophen 5-325 mg 1 tab PO Q6H PRN propranolol ER 1 cap PO BID Tobacco use date assessed: 06/30/24 Fall risk assessment: No Falls in past year Last assessed Fall Risk: 06/30/24 Dental Screening Dental Screen Date: 06/30/24 Did you have a dental visit in the last 12 months?: Yes Did you have a dental problem in the last 6 months where you did not have access to dental care?: No HPI HPI Comments History of Present Illness Details This is a 69 year old female with a past medical history of hypertension, headaches, GERD, allergies, diverticulosis presenting for follow up. Last seen in Nov by PCP. ROGERS: Migraine on propranolol ER 80mg twice daily. Migraines are stable. Lovein works. Dr Noe GERD: On prilosec 20mg daily Allergies: on flonase, zyrtec MSK: History of torn right shoulder Mammogram-Gets mammograms at [facility]. Colonoscopy-Reports UTD ROS CONSTITUTIONAL: Denies weight loss, fever and chills. HEENT: Denies changes in vision and hearing. RESPIRATORY: Denies SOB and cough. CV: Denies palpitations and CP GI: Denies abdominal pain, nausea, vomiting and diarrhea. : Denies dysuria and urinary frequency. MSK: Denies new myalgia and joint pain. SKIN: Denies rash and pruritus. NEUROLOGICAL: Denies headache PSYCHIATRIC: Denies recent changes in mood. PHYSICAL EXAM: GENERAL: Alert and oriented x 3. NAD EYES: EOMI. Anicteric. HENT: Moist mucous membranes. No scleral icterus. No cervical lymphadenopathy. LUNGS: Clear to auscultation bilaterally. CARDIOVASCULAR: Regular rate and rhythm. No murmur. No JVD. ABDOMEN: Soft, non-tender +bs EXTREMITIES: No edema. Non-tender. SKIN: No rashes or lesions. Warm. NEUROLOGIC: No focal neurological deficits. CN II-XII grossly intact PSYCHIATRIC: Cooperative. Appropriate mood and affect [facility] Medical History History of COVID-19 Abdominal bloating Shingles Back pain Migraines Surgical History Hx of cataract extraction History of hand surgery History of surgery History of shoulder surgery Hx of colonoscopy Family History Father Cancer Bone cancer Mother Cancer Oral cancer Brother Leukemia Social History Housing: House Are you a primary managed care liaison to a significant other at home: No Do you presently have visiting nurse or other home services: No Alcohol intake: current Alcohol intake frequency: holidays/special occasions only Alcohol type: wine Patient Tobacco Use Status: Former Tobacco user Tobacco use type: Cigarette Advance Directives Date on File: 01/26/20 service: No Current occupational status: retired and disabled Cognitive needs: No Hearing needs: No Vision needs: Yes (rx glasses) Questionnaire PHQ-9 Over the last 2 weeks, how often have you been bothered by any of the following problems? 1. Little interest or pleasure in doing things: not at all 2. Feeling down, depressed, or hopeless: not at all 3. Trouble falling or staying asleep, or sleeping too much: not at all 4. Feeling tired or having little energy: not at all 5. Poor appetite or overeating: not at all 6. Feeling bad about yourself - or that you are a failure or have let yourself or your family down: not at all 7. Trouble concentrating on things, such as reading the newspaper or watching television: not at all 8. Moving or speaking so slowly that other people could have noticed. Or the opposite - being so fidgety or restless that you have been moving around a lot more than usual: not at all 9. Thoughts that you would be better off or of hurting yourself in some way: not at all Total score: 0 Depression Screening Interpretation: Negative Depression Screening Done: Yes 33767 - PHQ-9 Billing: Yes Source: Developed by Drs. Eduardo Renteria, Jennifer Barbosa, Norman Montenegro and colleagues, with an educational koki from [employer]. Thrive Questionnaire Date Thrive assessed: 06/30/24 I am a: Patient What is your living situation today?: I have a steady place to live Within the past 12 months, did the food you bought not last and you didn't have the money to get more?: Never true Within the past 12 months, did you worry whether your food would run out before you got money to buy more?: Never true Do you have trouble paying for medicines?: No Do you have trouble getting transportation to medical appointments?: No Do you have trouble paying your heating and electricity bill?: No Do you have trouble taking care of your child, family member or friend?: No Do you have trouble with day-to-day activities such as bathing, preparing meals, shopping, managing finances, etc.?: No Are you currently unemployed and looking for a job?: No Are you interested in more education?: No THRIVE Score: 0 AUDIT C Alcohol Use Questionnaire (AUDIT-C) 1. How often do you have a drink containing alcohol?: Never 3. How often do you have six or more drinks on one occasion?: Never Total Score: 0 KWESI-7 AMB Questionnaire KWESI-7 Date KWESI - 7 assessed: 06/30/24 Feeling nervous, anxious, or on edge: 0 = Not at all Not being able to stop or control worryin = Not at all Worrying too much about different things: 0 = Not at all Trouble relaxin = Not at all Being so restless that it is hard to sit still: 0 = Not at all Becoming easily annoyed or irritable: 0 = Not at all Feeling afraid as if something awful might happen: 0 = Not at all Total KWESI-7 score (0-4 normal; 5-9 mild; 10-14 moderate; 15-21 severe): 0 Source: Developed by Drs. Eduardo Renteria, Jennifer Barbosa, Norman Montenegro and colleagues, with an educational koki from [employer]. Physical exam (Primary Care) Vital Signs: Last Vital Signs Temp 97.5 F 06/30/24 15:29 Pulse 68 06/30/24 15:29 Resp 14 06/30/24 15:29 BP 136/80 06/30/24 15:29 Pulse Ox 99 06/30/24 15:29 Oxygen Delivery Method Room Air 06/30/24 15:29 BMI result Body Mass Index 24.8 Tobacco/Smoking Status: Tobacco use Status Tobacco use date assessed 06/30/24 06/30/24 15:21 Patient Tobacco Use Status Former Tobacco user 06/30/24 15:20 Tobacco use type Cigarette 06/30/24 15:20 PHQ-9: PHQ-9 Score PHQ-9: Total score 0 06/30/24 16:05 Depression Screening Interpretation: Negative Thrive Assessment: Date of Thrive Assessment Date Thrive assessed 06/30/24 06/30/24 15:21 Coding Level of Care Code Est Pt Level 4 (65698) Complex EM visit Add On G2211 Diagnoses Migraine without status migrainosus, not intractable, unspecified migraine type G43.909 Intractability: not intractable Migraine type: unspecified Status migrainosus presence: without status migrainosus Gastroesophageal reflux disease, unspecified whether esophagitis present K21.9 Esophagitis presence: esophagitis presence not specified Additional Codes PHQ-9 - 51810 - PHQ-9 Billing: Yes ([id number]) Assessment & Plan Assessment & Plan (1) Migraines: Code(s): G43.909 - Migraine, unspecified, not intractable, without status migrainosus Category: Medical Qualifiers: Intractability: not intractable Migraine type: unspecified Status migrainosus presence: without status migrainosus Qualified Code(s): G43.909 - Migraine, unspecified, not intractable, without status migrainosus Plan: stable frequency and severity (2) GERD (gastroesophageal reflux disease): Code(s): K21.9 - Gastro-esophageal reflux disease without esophagitis Category: Medical Qualifiers: Esophagitis presence: esophagitis presence not specified Qualified Code(s): K21.9 - Gastro-esophageal reflux disease without esophagitis Plan: Stable on PPI Orders: Orders Complete Blood Count Auto Diff Today G43.909 - Migraine, unspecified, not intractable, without status migrainosus, K21.9 - Gastro-esophageal reflux disease without esophagitis, Z13.0 - Encounter for screening for diseases of the blood and blood-forming organs and certain disorders involving the immune mechanism, Z13.220 - Encounter for screening for lipoid disorders, Z13.228 - Encounter for screening for other metabolic disorders TSH reflex Free T4 Today G43.909 - Migraine, unspecified, not intractable, without status migrainosus, K21.9 - Gastro-esophageal reflux disease without esophagitis, Z13.0 - Encounter for screening for diseases of the blood and blood-forming organs and certain disorders involving the immune mechanism, Z13.220 - Encounter for screening for lipoid disorders, Z13.228 - Encounter for screening for other metabolic disorders Comprehensive Met. Panel Today G43.909 - Migraine, unspecified, not intractable, without status migrainosus, K21.9 - Gastro-esophageal reflux disease without esophagitis, Z13.0 - Encounter for screening for diseases of the blood and blood-forming organs and certain disorders involving the immune mechanism, Z13.220 - Encounter for screening for lipoid disorders, Z13.228 - Encounter for screening for other metabolic disorders Lipid Panel Today G43.909 - Migraine, unspecified, not intractable, without status migrainosus, K21.9 - Gastro-esophageal reflux disease without esophagitis, Z13.0 - Encounter for screening for diseases of the blood and blood -forming organs and certain disorders involving the immune mechanism, Z13.220 - Encounter for screening for lipoid disorders, Z13.228 - Encounter for screening for other metabolic disorders
[2024-06-30 15:29] VITALS: BP 136/80; PULSE 68; RESP 14; TEMP 36.4; O2SAT 99; BMI 24.8
== END 2024-06-30 16:28 | disposition home or self-care (01) ==
LOC: HO.HMCHD 14:30
PROVIDERS: PCP Internal Medicine; Visit Provider Internal Medicine
DX: G43.909 Migraine, unspecified, not intractable, without status migrainosus (principal); K21.9 Gastro-esophageal reflux disease without esophagitis

== ENCOUNTER → 2024-06-30 14:30 | Outpatient (BNVA) | payer MEDICARE, SELFPAY | PROVIDERS: PCP Internal Medicine; Visit Provider Internal Medicine | DX: I10 Essential (primary) hypertension (principal); K21.9 Gastro-esophageal reflux disease without esophagitis; K57.90 Diverticulosis of intestine, part unspecified, without perforation or abscess without bleeding; G43.909 Migraine, unspecified, not intractable, without status migrainosus | CPT/HCPCS: 96127; 99212 ==

== ENCOUNTER 2024-10-27 13:03 | Outpatient (AMB) | payer MEDICARE, SELFPAY ==
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
== END 2024-10-27 13:30 | disposition home or self-care (01) ==
LOC: HO.HSM 13:04
PROVIDERS: PCP Internal Medicine; Referring Provider Internal Medicine; Visit Provider Registered Nurse
DX: M51.26 Other intervertebral disc displacement, lumbar region (principal); G43.909 Migraine, unspecified, not intractable, without status migrainosus
CPT/HCPCS: 99214

== ENCOUNTER → 2024-10-27 13:03 | Outpatient (BNVA) | payer MEDICARE, SELFPAY | PROVIDERS: PCP Internal Medicine; Referring Provider Internal Medicine; Visit Provider Registered Nurse | DX: M51.26 Other intervertebral disc displacement, lumbar region (principal); G43.909 Migraine, unspecified, not intractable, without status migrainosus; Z79.891 Long term (current) use of opiate analgesic; Z79.82 Long term (current) use of aspirin; Z79.899 Other long term (current) drug therapy | CPT/HCPCS: 99212 ==

== ENCOUNTER 2025-02-01 08:34 | Outpatient (REF) | payer MEDICARE, SELFPAY ==
[2025-02-01 10:11] LABS: MANUAL DIFF FLAG NO
[2025-02-01 10:13] LABS: Hematocrit 40.1 % (37.0-47.0); Hemoglobin 13.2 g/dl (12.0-16.0); Imm Gran Abs Auto 0.01 X10*3/uL (0.00-0.03); Imm Gran Pct Auto 0.2 % (0.0-0.4); Lymphocytes Absolute Auto 2.2 X10*3/uL (1.2-4.9); Mean Corpuscular HGB Conc 32.9 g/dl (31.0-35.0); Mean Corpuscular Hemoglobin 30.6 pg (27.0-33.0); Mean Corpuscular Volume 92.8 fL (80.0-98.0); NRBC Abs Auto 0.000 X10*3/uL (0.0-0.012); NRBC Pct Auto 0.0 /100WBC (0.0-0.2); Platelet Count 222 X10*3/uL (160-400); Red Blood Count 4.32 X10*6/uL (4.20-5.50); White Blood Count 5.4 X10*3/uL (4.8-10.8)
[2025-02-01 11:17] LABS: Alanine Aminotransferase 16 U/L (0-31); Albumin Level 4.6 g/dL (3.5-5.0); Alkaline Phosphatase 62 U/L (39-117); Anion Gap 12 (12-20); Aspartate Amino Transferase 26 U/L (5-31); Blood Urea Nitrogen 16 mg/dL (9-16); Calcium 9.9 mg/dL (8.4-10.2); Carbon Dioxide 30 mmol/L (22-29); Chloride 105 mmol/L (96-108); Cholesterol 222 mg/dL (<200); Estimated Glomerular Filt Rate 55; HDL Cholesterol 55 mg/dL (>40); Potassium 4.1 mmol/L (3.3-5.1); Sodium 143 mmol/L (135-145); Total Protein 7.7 g/dL (6.5-8.0); Triglycerides 212 mg/dL (<150)
== END 2025-02-01 08:35 | disposition home or self-care (01) ==
LOC: HO.10HDL 08:34
PROVIDERS: Visit Provider Internal Medicine
DX: Z13.0 Encounter for screening for diseases of the blood and blood-forming organs and certain disorders involving the immune mechanism (principal); Z13.220 Encounter for screening for lipoid disorders; Z13.6 Encounter for screening for cardiovascular disorders; Z13.228 Encounter for screening for other metabolic disorders; G43.909 Migraine, unspecified, not intractable, without status migrainosus; K21.9 Gastro-esophageal reflux disease without esophagitis
CPT/HCPCS: 36415; 80053; 80061; 84443; 85025